=== PATIENT | female | born 1995 | race Caucasian/White ===

== ENCOUNTER 2021-01-08 19:33 | Observation (INO) | payer MEDICAID ==
[~2021-01-08] VITALS: Ht 162.6 cm; Wt 114.8 kg
[2021-01-08] MEDS ORDERED: FOLI0.4T6 PO (19:52)
[2021-01-08] MEDS ORDERED: PREN1TAB80 PO (19:52)
[2021-01-08] MEDS ORDERED: FERR236T3 PO (19:52)
[2021-01-08 20:21] VITALS: BP 125/58
== END 2021-01-08 21:00 | disposition home or self-care (01) ==
LOC: 4S 19:33
PROVIDERS: ADMIT Obstetrics & Gynecology; ATTEND Obstetrics & Gynecology
DX: O46.93 Antepartum hemorrhage, unspecified, third trimester (principal); Z3A.30 30 weeks gestation of pregnancy
CPT/HCPCS: 59025; 81001; 99219

== ENCOUNTER 2021-01-28 20:12 | Observation (INO) | payer MEDICAID, OTHER ==
[~2021-01-28] VITALS: Ht 162.6 cm; Wt 119.7 kg
[2021-01-28 19:57] VITALS: BP 133/55
[~2021-01-28 20:12] MED LIST: FERR236T3 PO; FOLI0.4T6 PO; PREN1TAB80 PO
[2021-01-28 21:01] LABS: APPEARANCE,URINE CLEAR (CLEAR); BILIRUBIN,URINE NEGATIVE (NEGATIVE); GLUCOSE, URINE (UA) NEGATIVE (NEGATIVE); KETONES,URINE 15 mg/dL (NEGATIVE); LEUKOCYTE ESTERASE ,URINE NEGATIVE (NEGATIVE); NITRATE,URINE NEGATIVE (NEGATIVE); OCCULT BLOOD,URINE NEGATIVE (NEGATIVE); PH,URINE 5.5 (5.0-8.0); PROTEIN,URINE NEGATIVE (NEGATIVE); UROBILINOGEN,URINE 0.2 mg/dL (<=1.0)
[2021-01-28 21:25] LABS: BACTERIA,URINE None Seen /HPF (None Seen); RBC,URINE None Seen /HPF (0-2); SQUAMOUS EPITHELIAL CELL,UR Few /LPF (None Seen); WBC,URINE 0-2 /HPF (0-5)
== END 2021-01-28 21:42 | disposition home or self-care (01) ==
LOC: 4S 20:12
PROVIDERS: ADMIT Student in an Organized Health Care Education/Training Program; ATTEND Student in an Organized Health Care Education/Training Program
DX: O62.9 Abnormality of forces of labor, unspecified (principal); Z3A.33 33 weeks gestation of pregnancy; Z79.899 Other long term (current) drug therapy
CPT/HCPCS: 59025; 80307; 96360; 99219